=== PATIENT | male | born 1990 | race Caucasian/White ===

== ENCOUNTER 2017-07-11 07:53 | Emergency (ER) | payer OTHER ==
[2017-07-11 08:36] LABS: BILIRUBIN,URINE NEGATIVE (NEGATIVE)
[2017-07-11 08:42] LABS: UA w/ MICROSCOPIC CHARGE YES
--- NOTE | 2017-07-11 09:01 | ED Physician Documentation ---
History of Present Illness - Stated complaint Stated Complaint: MALE - Chief complaint Chief Complaint: General - Additonal information Additional information: hx from pt 27 AD Snyder male hematuria for 2 days no dysuria no penile dc no testiculr pain denies any chance of STD no fever chills no NV no flank pain mild RLQ pain hx kidney stones but this does not feel like a stone Review of Systems Constitutional: denies: Fever, Chills GI: reports: Abdominal Pain (mild RLQ). denies: Nausea, Vomiting : reports: Hematuria. denies: Dysuria, Discharge, Testicular pain Musculoskeletal: denies: Back pain Immunocompromised: denies: Immunocompromised PD PAST MEDICAL HISTORY - Past Medical History Past Medical History: No - Present Medications Home Medications: Ambulatory Orders Medication Instructions Recorded Confirmed No Known Home Medications [No 07/11/17 07/11/17 Known Home Medications] - Allergies Allergies/Adverse Reactions: Allergies Allergy/AdvReac Type Severity Reaction Status Date / Time No Known Drug Allergies Allergy Verified 07/11/17 08:10 - Social History Does the pt smoke?: No Smoking Status: Never smoker - Immunizations Immunizations are current?: Yes PD ED PE NORMAL - Vitals Vital signs reviewed: Yes - General General: Alert and oriented X 3 - HEENT HEENT: PERRL - Neck Neck: Supple, no meningeal sign - Cardiac Cardiac: RRR - Respiratory Respiratory: No respiratory distress, Clear bilaterally - Abdomen Abdomen: Soft, Non tender - Male Male : Other (no dc, no lesions, no blood at jer, no testicular TTP or mass) - Derm Derm: Normal color Results - Vitals Vitals: Vital Signs - 24 hr 07/11/17 07/11/17 08:02 08:37 Temperature 36.9 C Heart Rate 81 Respiratory 16 Rate Blood Pressure 156/102 H O2 Saturation 97 Oxygen O2 Source Room air - Labs Labs: Laboratory Tests 07/11/17 08:24 Urine Color DARK YELLOW Urine Clarity HAZY Urine pH 8.0 H Ur Specific [place] 1.015 Urine Protein NEGATIVE Urine Glucose (UA) NEGATIVE Urine Ketones NEGATIVE Urine Occult Blood LARGE H Urine Nitrite NEGATIVE Urine Bilirubin NEGATIVE Urine Urobilinogen 0.2 (NORMAL) Ur Leukocyte Esterase NEGATIVE Urine RBC TNTC H Urine WBC 0-3 Ur Squamous Epith Cells NONE SEEN Amorphous Sediment Few Urine Bacteria Few Ur Microscopic Review INDICATED Urine Culture Comments NOT INDICATED - Rads (name of study) KUB Radiology: See rad report (3 mm density over right kidney, no ureteral caclcifications) PD MEDICAL DECISION MAKING - ED course ED course: painless hematuria emanuel toung healthy AD Snyder male UA does not suggest infection, urine culture and STD cultures running, no ureteral stone seen on KUB and no pain so doubt renal colic, will call [facility] to discuss fup and possible urology referral if blood continues and cx are neg Departure - Departure Disposition: 01 Home, Self Care Clinical Impression: Painless hematuria Condition: Good Instructions: ED Hematuria Follow-Up: [facility] Kermit Brooks [Provider Group] Comments: The urine test shows a lot of blood but no infection - a culture will be run to confirm The xray does not show any stones in the ureter You will need further work up beyond what can be dine in an ER visit - a urology referral, perhaps a scope of your bladder, perhaps an ultrasound of your kidney Also you blood pressure is high and this should be rechecked - high blood pressure can be a sign of kidney disease so this is very important I spoke to your Mr. Number doctor LT Tenorio and they will see you for an ER follow up appointment at [facility] in the next 24-48 hr
[2017-07-11 09:19] LABS: WBC,URINE 0-3 /HPF (0-3)
[2017-07-11 09:20] LABS: UR CULTURE IF IND NOT INDICATED
--- NOTE | 2017-07-11 09:41 | XRAY Preliminary Report ---
Exam: XR Abdomen 1 View IMPRESSION: 1. A 3 mm density overlies right mid kidney. Potential renal stone. [facility] SITE ID: [id number]
--- NOTE | 2017-07-11 09:43 | XRAY Report ---
EXAM: ABDOMEN RADIOGRAPHY EXAM DATE: 07/11/2017 09:30 AM. CLINICAL HISTORY: Hematuria. COMPARISON: None. TECHNIQUE: 1 view. FINDINGS: Bowel Gas Pattern: Within normal limits. No dilated loops. Other: 3 mm density overlies right mid kidney. Potential renal stone. IMPRESSION: 1. A 3 mm density overlies right mid kidney. Potential renal stone. [facility] Referring Provider Line: [phone] SITE ID: [id number]
[2017-07-11 11:11] VITALS: BP 138/93
== END 2017-07-11 11:09 | disposition home or self-care (01) ==
LOC: ED 07:53
DX: R31.9 Hematuria, unspecified (principal); R03.0 Elevated blood-pressure reading, without diagnosis of hypertension
CPT/HCPCS: 74000; 81001; 81003; 87086; 87491; 87591; 99283